=== PATIENT | male | born 1970 | race Caucasian/White ===

== ENCOUNTER 2017-12-01 22:39 | Emergency (ER) | payer SELFPAY ==
[2017-12-01 22:44] VITALS: BP 127/86
[2017-12-01] MEDS ORDERED: DIPHENHYDRAMINE HCL 50 MG CAPSULE PO ONE (23:13)
[2017-12-01] MEDS ORDERED: PREDNISONE 20 MG TABLET PO ONE (23:13)
[2017-12-01] MEDS ORDERED: FAMOTIDINE 20 MG TABLET PO ONE (23:13)
--- NOTE | 2017-12-01 23:19 | ER Document Report ---
ED Allergic Reaction - General Chief Complaint: Hives Stated Complaint: POSSIBLE RASH Time Seen by Provider: 12/01/17 23:13 Mode of Arrival: Ambulatory Information source: Patient Notes: This is a 47-year-old man who presents to the emergency room with diffuse hives on his upper extremity, trunk, lower extremities. Patient states he first started having them around [place] and was given a dose of steroids at that time and it got better for a short period of time and then he started having them come back again. He denies any shortness of breath or swelling around the mouth or any difficulty breathing. He denies any difficulty swallowing. Medications: Claritin, Elvira, Benadryl Allergies sulfa Supplements: Azomite TRAVEL OUTSIDE OF THE [place] IN LAST 30 DAYS: No - HPI Onset: Other Onset/Duration: Gradual - Last 2 months on and off Quality of pain: No pain Severity: None Pain Level: Denies Identified cause: No Food exposure: Shellfish Other exposure: Other - Patient is changed his detergents Skin rash / itching: "Hives" Trouble swallowing / speaking: Moderate Similar symptoms previously: Yes Recently seen / treated by doctor: Yes - Related Data Allergies/Adverse Reactions: Sulfa (Sulfonamide Antibiotics) Allergy (Severe, Verified 03/14/13 15:26) swelling Past Medical History - General Information source: Patient - Social History Smoking Status: Unknown if Ever Smoked Cigarette use (# per day): No Chew tobacco use (# tins/day): No Frequency of alcohol use: None Drug Abuse: None Lives with: Family Family History: Reviewed & Not Pertinent Patient has suicidal ideation: No Patient has homicidal ideation: No - Medical History Medical History: Negative Renal/ Medical History: Denies: Hx Peritoneal Dialysis Surgical Hx: Negative - Immunizations Immunizations up to date: Yes Hx Diphtheria, Pertussis, Tetanus Vaccination: Yes Review of Systems - Review of Systems Constitutional: denies: Chills, Fever EENT: No symptoms reported Cardiovascular: No symptoms reported Respiratory: No symptoms reported Gastrointestinal: No symptoms reported Genitourinary: No symptoms reported Male Genitourinary: No symptoms reported Musculoskeletal: No symptoms reported Skin: See HPI Hematologic/Lymphatic: No symptoms reported Neurological/Psychological: No symptoms reported Physical Exam - Vital signs Vitals: Temp Pulse Resp BP Pulse Ox 97.9 F 95 18 127/86 H 99 12/01/17 22:43 12/01/17 22:43 12/01/17 22:43 12/01/17 22:43 12/01/17 22:43 Notes: Physical exam: GENERAL: 47-year-old man, alert and oriented 3, no acute distress HEAD: Atraumatic, normocephalic. EYES: Pupils equal round and reactive to light, extraocular movements intact, sclera anicteric, conjunctiva are normal. ENT: TMs normal, nares patent, oropharynx clear without exudates or lesions. Moist mucous membranes. NECK: Normal range of motion, supple without obvious mass or JVD. LUNGS: Breath sounds clear to auscultation bilaterally and equal. No wheezes rales or rhonchi. HEART: Regular rate and rhythm without murmurs, rubs or gallops. ABDOMEN: Soft, normoactive bowel sounds. No tenderness to palpation. No guarding, no rebound. No masses appreciated. EXTREMITIES: Normal range of motion, no pitting or edema. No clubbing or cyanosis. NEUROLOGICAL: Cranial nerves II through XII grossly intact. Normal speech, moving all extremities. PSYCH: Normal mood, normal affect. SKIN: Diffuse hives upper and lower extremities as well as trunk. Course - Re-evaluation Re-evalutation: 12/01/17 23:29 There is no evidence of airway compromise. The patient is on no medicines other than what is been taking for the allergic reaction. He is on a supplement called Azomite which I have advised him to stop taking until further follow-up with an malt house kiln operator. - Vital Signs Vital signs: Temp Pulse Resp BP Pulse Ox 97.9 F 95 18 127/86 H 99 12/01/17 22:43 12/01/17 22:43 12/01/17 22:43 12/01/17 22:43 12/01/17 22:43 Discharge - Discharge Clinical Impression: Hives Condition: Stable Disposition: HOME, SELF-CARE Additional Instructions: Recommendations: Take Prednisone as below: 6 tabs (60 mg) for 2 days, 5 tabs (50 mg) for 2 days, 4 tabs (40 mg) for 2 days , 3 tabs (30 mg) for 2 days, 2 tabs (20 mg) for 2 days, 1 tab (10 mg for 2 days , then stop. Take the pepcid as prescibed. Take the Benadryl as needed. As discussed, I recommend you stop the Azomite supplement for now. Return to the emergency room for any worsening rash or any shortness of breath or difficulty swallowing. Followup with an malt house kiln operator for allergy testing: [facility]: Address: [address] [place] [id number] Prescriptions: Famotidine [Pepcid 20 mg Tablet] 20 mg PO BID #12 tablet Prednisone 10 mg PO DAILY #42 tablet
== END 2017-12-01 23:21 | disposition home or self-care (01) ==
LOC: ER 22:39
DX: L50.9 Urticaria, unspecified (principal); Z88.2 Allergy status to sulfonamides
CPT/HCPCS: 99282; J7512

== ENCOUNTER 2020-08-27 07:06 | Day surgery (SDC) | payer BC ==
[~2020-08-27 07:06] MED LIST: BACITRACIN ZINC OINTMENT 15 GM ONE; BUPIVACAINE HCL 0.5%/EPI 1:200000 INJ 1.8 ML CARTRIDGE ONE; CEFAZOLIN 2 GM/D5W RTU 2 GM/50 ML RTUPB IV PRN; DEXAMETHASONE SOD PHOS INJ 10 MG/1 ML VIAL ONE; DEXMEDETOMIDINE INJ 80 MCG/20 ML VIAL IV ONE; FENTANYL CITRATE INJ/PF 100 MCG/2 ML AMPUL ONE; HYDROMORPHONE HCL INJ/PF 2 MG/ML AMPULE ONE; MIDAZOLAM 2 MG/2 ML INJ ONE; MINERAL OIL (STERILE) 10 ML VIAL ONE; ONDANSETRON HCL INJ/PF 4 MG/2 ML SDV ONE; OXYMETAZOLINE HCL 0.05% NASAL SPRAY 15 ML BOTTLE ONE; PROPOFOL INJ 200 MG/20 ML VIAL IV ONE; SUCCINYLCHOLINE CHLORIDE INJ 200 MG/10 ML VIAL ONE
[2020-08-27] MEDS ORDERED: CEFAZOLIN 2 GM/D5W RTU 2 GM/50 ML RTUPB IV ONE (07:42)
[2020-08-27] MEDS ORDERED: LIDOCAINE 0.5% INJ-PF (5 MG/ML) 50 ML SDV SUBCUT PRN (08:04)
[2020-08-27] MEDS ORDERED: TOBRAMYCIN SULFATE/DEXAMETH OPH OINTMENT 3.5 GM ONE (08:12)
[2020-08-27] MEDS ORDERED: TOBRAMYCIN SULFATE/DEXAMETH OPH SUSP 2.5 ML ONE (08:12)
[2020-08-27] MEDS ORDERED: LACTATED RINGERS 1000 ML IV PRN (08:15)
[2020-08-27] MEDS ORDERED: SCOPOLAMINE HYDROBROMIDE 1.5 MG PATCH.TD72 TD ONE (08:15)
[2020-08-27] MEDS ORDERED: BUPIVACAINE HCL 0.5%-EPI 1:200000 INJ/PF 30 ML VIAL ONE (09:35)
[2020-08-27] MEDS ORDERED: LIDOCAINE 1%/EPINEPHRINE INJ 20 ML VIAL ONE (09:35)
[2020-08-27] MEDS ORDERED: FENTANYL CITRATE INJ/PF 100 MCG/2 ML AMPUL ONE (12:22)
[2020-08-27] MEDS ORDERED: MORPHINE SULFATE 10 MG/ML INJ ONE (12:22)
[2020-08-27] MEDS ORDERED: BALANCED SALT IRRIG SOLN COMB2 15 ML BOTTLE ONE (13:36)
[2020-08-27] MEDS ORDERED: PROMETHAZINE HCL INJ 25 MG/1 ML VIAL ONE (15:03)
[2020-08-27] MEDS ORDERED: HYDROMORPHONE HCL INJ/PF 2 MG/ML AMPULE ONE (15:04)
--- NOTE | 2020-08-27 21:24 | Operative Report ---
Operative Report-[facility] Operative Report: DATE OF OPERATION: August 27, 2020 PREOPERATIVE DIAGNOSES: 1. Nasal septal deviation, Acquired 2. Bilateral inferior turbinate hypertrophy 3. Nasal Deformities, Acquired 4. Chronic Nasal Dyspnea 5. History of facial trauma 6. History of left facial/orbital/periorbital reconstructive surgery with ORIF with titanium plating 7. History of nasal trauma 8. Middle turbinate hypertrophy 9. Chronic nasal pain 10. Bilateral nasal valve collapse POSTOPERATIVE DIAGNOSES: 1. Nasal septal deviation, Acquired 2. Bilateral inferior turbinate hypertrophy 3. Nasal Deformities, Acquired 4. Chronic Nasal Dyspnea 5. History of facial trauma 6. History of left facial/orbital/periorbital reconstructive surgery with ORIF with titanium plating 7. History of nasal trauma 8. Middle turbinate hypertrophy 9. Chronic nasal pain 10. Bilateral nasal valve collapse PROCEDURES: 1. Reconstructive revision septorhinoplasty with major septal repair and with numerous irradiated costal cartilage rib grafts 2. Bilateral intramural inferior turbinate reductions using submucus resection techniques 3. Middle turbinate reduction SURGEON: Dr. Nathen Avalos Anesthesia Staff: BRITTON Trinh ANESTHESIA: General endotracheal tube anesthesia/GETA DRAINS: None SPONGE COUNT: Verified NEEDLE COUNT: Verified SPECIMEN/MATERIALS FORWARD TO THE LAB: None ESTIMATED BLOOD LOSS: 275 mL TOTAL IV FLUIDS: 1200 mL URINE OUTPUT: 300 mL COMPLICATIONS: None FINDINGS: 1. Severe left nasal septal deviation involving bone and cartilage, moderate to severe left maxillary crest spur/ septal spur. Damaged/deformed nasal septal cartilage and damaged upper lateral cartilages with scar cicatrix and cartilage loss. 2. Significant nasal dorsal bony and cartilaginous irregularities/deformities. 3. Bilateral nasal valve collapse. 4. Bilateral inferior turbinate hypertrophy, right middle turbinate hypertrophy. INDICATIONS: This is a 50-year-old white male patient who was seen and evaluated in the [place] [facility] office. The patient was referred for and they complained of a history of chronic nasal dyspnea over the years. The patient is with history of nasal trauma in left facial/orbital/periorbital trauma resulting in ORIF reconstructive surgery with titanium plates. The patient clinically is noted to have nasal septal deviations, bilateral turbinate hypertrophy, and nasal deformities. The patient has desired to undergo nasal surgery to improve functional nasal airflow and overall quality of life. The reconstructive revision septorhinoplasty with irradiated costal cartilage rib grafts, and turbinate reduction surgery, and all of the risks and complications were all discussed in detail with the patient. He voiced an understanding, agreed to proceed, and consent was obtained. DESCRIPTION OF OPERATIVE PROCEDURE: The patient was taken to the main operating room and placed on the operating room table in the supine position. Appropriate monitors were placed. Using mask and IV access general anesthesia was induced. The patient was then transorally intubated without difficulty. The table was next positioned for nasal surgery. The patient underwent a nasal examination and local anesthetic with epinephrine was administered to establish a nasal block. The patient next had two Afrin soaked neuropatties placed into each nasal passage. The patient was then prepped and draped in the usual fashion for nasal surgery. The neuropatties were removed and the patient underwent a hemitransfixion incision. There was elevation of the mucoperichondrial and mucoperiosteal flaps without difficulty. The bony cartilaginous junction was identified and divided and the most deviated portions of the bony and cartilaginous septum were removed without difficulty. There was a greater than 1.5 X 1.5 cm cartilaginous L-Strut preserved which was also deformed with bowi ng, deviation, and deformity. Attention was now turned to performing bilateral inferior turbinate reductions. The turbinate bipolar wand was used to make 2 - 3 intramural passes in each inferior turbinate. At this point the turbinate microdebrider system at a setting of 1500 RPM was used to perform bilateral inferior turbinate submucus resections. This was followed by use of the Ran elevator to outfracture each inferior turbinate. At this point the right middle turbinate was gently crossclamped with a straight Marybeth clamp to infracture and reduce the overall size and prominence of the right middle turbinate. At this point the patient underwent an open/external reconstructive septorhinoplasty in the following manner. At this point there was an inverted-V incision marked out at the mid columellar distribution. This area was sharply incised with incisions carried into the nose is marginal incisions and the skin and soft tissue envelope was elevated without difficulty. Bipolar elec trocautery was utilized throughout the case at a setting of 10. There were precise pockets created for extended alar bandar grafts. Findings are as noted above with damaged cartilage and scar deformity and cartilage loss. The upper lateral cartilages were delicately dissected from the septum with mid septal and upper lateral cartilage loss. There was extensive dorsal rasp work performed and removal of excessive deformed and damaged cartilage. At this point the irradiated rib cartilage graft was fashioned into a robust and extended left gas meter reader graft and two robust and extended alar bandar grafts. The left gas meter reader graft was fixed in place with Prolene suture and the upper lateral cartilages were then reattached to the midline with Prolene suture. Once complete the patient's cartilage was fashioned into an extensive right caudal septal graft. The right side of the remaining L-strut was crosshatched to release tension and deformity at other cartilage. At this point the caudal s eptal graft and remaining L-strut were secured together with Prolene suture. At this point the nose was thoroughly suctioned. Once complete the septum was repositioned in the midline and fixed in place at the anterior nasal spine with clear nylon suture. Cartilage which had been excised during the case was placed back between the mucosal flaps. At this point the mucosal flaps were reapproximated and the hemitransfixion incision was closed using Chromic suture. The bilateral alar bandar grafts were secured in place with Telfa bolsters inside and outside the nose fixed in place with Prolene suture. This was followed by placement of a modified Merocel nasal pack with Afrin and bacitracin ointment 1 in each nasal passage that was secured at the caudal aspect with 4-0 Prolene suture. Rolled Surgicel was placed in the left nasal passage deep to the gas meter reader graft. The nose was then cleaned and dried followed by placement of Mastisol, Steri-Strips, and a Tyree aluminum pressure splint. Next, the patient was returned to the anesthesia staff and was allowed to emerge from general anesthesia. The patient was extubated in the main operating room and was then transported to the postanesthesia recovery unit in stable condition. There were no complications.
== END 2020-08-27 15:55 | disposition home or self-care (01) ==
LOC: SC 07:06
PROVIDERS: ATTEND Otolaryngology
DX: M95.0 Acquired deformity of nose (principal); J34.2 Deviated nasal septum; J34.89 Other specified disorders of nose and nasal sinuses; J34.3 Hypertrophy of nasal turbinates; R06.09 Other forms of dyspnea; Z01.812 Encounter for preprocedural laboratory examination; Z20.828 Contact with and (suspected) exposure to other viral communicable diseases
CPT/HCPCS: 00160; 30802; 30420; 20910; C1758; U0003; J2250; J3490 ×7; J3010; J1170; J2550; J0330; J2405; J2704; J1100; J0690; C9803; 160; 87635; J2270